=== PATIENT | male | born 2000 | race African-American/Black ===

== ENCOUNTER 2021-07-01 10:23 | Emergency (ER) | payer OTHER ==
[2021-07-01 10:31] VITALS: BP 126/76; PULSE 78
--- NOTE | 2021-07-01 10:57 | ED ---
General Adult HPI - General Chief complaint: Upper Respiratory Infection Stated complaint: Cough/SOB Time Seen by Provider: 07/01/21 10:30 Source: patient, RN notes reviewed, old records reviewed Mode of arrival: ambulatory Limitations: no limitations - History of Present Illness Initial comments: This is a 20-year-old male who presents emergency Department complaining that for the last 2 days she's been very congested and achy and he feels sick. Patient denies any difficulty breathing shortness of breath per patient denies any chest pain. Patient has abdominal pain patient denies nausea vomiting diarrhea. Patient states he did not get the COVID vaccine but he had COVID a few months ago. Patient did not get the flu vaccine. - Related Data Previous Rx's Medication Instructions Recorded Benzonatate [Tessalon Perles] 200 mg PO TID #15 capsule 07/01/21 Allergies Allergy/AdvReac Type Severity Reaction Status Date / Time No Known Allergies Allergy Verified 07/01/21 10:31 Review of Systems ROS Statement: Those systems with pertinent positive or pertinent negative responses have been documented in the HPI. ROS Other: All systems not noted in ROS Statement are negative. Past Medical History Past Medical History: No Reported History History of Any Multi-Drug Resistant Organisms: None Reported Past Surgical History: No Surgical Hx Reported Past Psychological History: No Psychological Hx Reported Smoking Status: Current every day smoker Past Alcohol Use History: None Reported Past Drug Use History: None Reported General Exam - General Exam Comments Initial Comments: GENERAL: Patient is well-developed and well-nourished. Patient is nontoxic and well- hydrated and is in mild distress. ENT: Neck is soft and supple. No significant lymphadenopathy is noted. Oropharynx is clear. Moist mucous membranes. Neck has full range of motion without eliciting any pain. EYES: The sclera were anicteric and conjunctiva were pink and moist. Extraocular movements were intact and pupils were equal round and reactive to light. Eyelids were unremarkable. PULMONARY: Unlabored respirations. Good breath sounds bilaterally. No audible rales rhonchi or wheezing was noted. CARDIOVASCULAR: There is a regular rate and rhythm without any murmurs gallops or rubs. ABDOMEN: Soft and nontender with normal bowel sounds. SKIN: Skin is clear with no lesions or rashes and otherwise unremarkable. NEUROLOGIC: Patient is alert and oriented x3. Cranial nerves II through XII are grossly intact. Motor and sensory are also intact. Normal speech, volume and content. Symmetrical smile. MUSCULOSKELETAL: Normal extremities with adequate strength and full range of motion. LYMPHATICS: No significant lymphadenopathy is noted PSYCHIATRIC: Normal psychiatric evaluation. Limitations: no limitations Course Vital Signs 07/01/21 07/01/21 07/01/21 10:28 11:08 11:09 Temperature 98.7 F 99.1 F Pulse Rate 78 Respiratory 18 20 Rate Blood Pressure 126/76 O2 Sat by Pulse 100 Oximetry Medical Decision Making - Lab Data Lab Results 07/01/21 07/01/21 Range/Units 11:06 11:06 Coronavirus (PCR) Not Detected (Not Detectd) Influenza Type A RNA Detected H (Not Detectd) Influenza Type B (PCR) Not Detected (Not Detectd) Disposition Clinical Impression: Influenza Disposition: HOME SELF-CARE Prescriptions: Benzonatate [Tessalon Perles] 200 mg PO TID #15 capsule Is patient prescribed a controlled substance at d/c from ED?: No Referrals: None,Stated [Primary Care Provider] - 1-2 days Time of Disposition: 12:34
[2021-07-01 11:09] VITALS: RESP 20
[2021-07-01 11:10] VITALS: TEMP 99.1
[2021-07-01] MEDS ORDERED: BENZOCAINE/MENTHOL LOZENG 1 EACH LOZENGE MUCOUS MEM STA (12:27)
== END 2021-07-01 12:57 | disposition home or self-care (01) ==
LOC: EC 10:23
DX: J11.1 Influenza due to unidentified influenza virus with other respiratory manifestations (principal); F17.200 Nicotine dependence, unspecified, uncomplicated; Z20.822 Contact with and (suspected) exposure to COVID-19; Z86.16 Personal history of COVID-19
CPT/HCPCS: 87502; 87635; 99283